=== PATIENT | female | born 1960 | race Caucasian/White ===

== ENCOUNTER 2019-06-11 09:07 | Outpatient (CLI) | payer OTHER ==
[2014-05-12 09:26] VITALS: BP 134/68
[2019-06-12 07:26] LABS: TOTAL PROTEIN SCANNED REPORT
== END 2019-06-11 09:10 ==
LOC: LAB 09:07
PROVIDERS: ATTEND Podiatrist Foot & Ankle Surgery
DX: B35.1 Tinea unguium (principal)
CPT/HCPCS: 36415; 80076